=== PATIENT | female | born 1995 | race African-American/Black ===

== ENCOUNTER 2017-03-07 06:22 | Emergency (ER) | payer SELFPAY ==
[2017-03-07 06:30] VITALS: BP 136/82
--- NOTE | 2017-03-07 06:50 | ER Document Report ---
ED General - General Chief Complaint: Swollen Glands Stated Complaint: NECK PAIN Time Seen by Provider: 03/07/17 06:25 Mode of Arrival: Ambulatory Information source: Patient Notes: 21-year-old female no previous medical history presents with complaints of tender lymph node in the posterior cervical region. Patient notes she's had a minor sore throat denies any fevers or chills nausea vomiting or diarrhea. Patient notes it is tender when she touched the back of her neck yesterday. Denies any other lymph node enlargement TRAVEL OUTSIDE OF THE [place] IN LAST 30 DAYS: No - HPI Onset: Yesterday Onset/Duration: Sudden Quality of pain: Achy Severity: Mild Pain Level: 1 Associated symptoms: Sore throat, Other Exacerbated by: Denies Relieved by: Denies Similar symptoms previously: No Recently seen / treated by doctor: No Past Medical History - Social History Smoking Status: Never Smoker Cigarette use (# per day): No Chew tobacco use (# tins/day): No Smoking Education Provided: No Family History: Reviewed & Not Pertinent Patient has suicidal ideation: No Patient has homicidal ideation: No Renal/ Medical History: Denies: Hx Peritoneal Dialysis Review of Systems - Review of Systems Notes: PHYSICAL EXAMINATION: GENERAL: Well-appearing, well-nourished and in no acute distress. HEAD: Atraumatic, normocephalic. EYES: Pupils equal round and reactive to light, extraocular movements intact, conjunctiva are normal. ENT: Nares patent, oropharynx clear without exudates. Moist mucous membranes. Single 1 mm lymph node posterior cervicular on the right tender to palpation NECK: Normal range of motion, supple without lymphadenopathy LUNGS: Breath sounds clear to auscultation bilaterally and equal. No wheezes rales or rhonchi. HEART: Regular rate and rhythm without murmurs ABDOMEN: Soft, nontender, nondistended abdomen. No guarding, no rebound. No masses appreciated. Female : deferred Musculoskeletal: Normal range of motion, no pitting or edema. No cyanosis. NEUROLOGICAL: Cranial nerves grossly intact. Normal speech, normal gait. Normal sensory, motor exams PSYCH: Normal mood, normal affect. SKIN: Facial hair noted Warm, Dry, normal turgor, no rashes or lesions noted. Physical Exam - Vital signs Vitals: Temp Pulse Resp BP Pulse Ox 97.7 F 64 15 136/82 H 100 03/07/17 06:25 03/07/17 06:25 03/07/17 06:25 03/07/17 06:25 03/07/17 06:25 Course - Re-evaluation Re-evalutation: 03/07/17 06:49 Patient is in no distress looks well Monospot and strep have been ordered otherwise a single lymph node at this time does not appear to be life threatening. 03/07/17 08:07 Monospot was positive this would explain the patient's posterior cervical adenopathy After performing a Medical Screening Examination, I estimate there is LOW risk for ACUTE APPENDICITIS, BOWEL OBSTRUCTION, ACUTE CHOLECYSTITIS, PERFORATED DIVERTICULITIS, INCARCERATED HERNIA, PANCREATITIS, PELVIC INFLAMMATORY DISEASE, PERFORATED ULCER, ECTOPIC , or TUBO-OVARIAN ABSCESS, thus I consider the discharge disposition reasonable. Also, there is no evidence or peritonitis , sepsis, or toxicity. I have reevaluated this patient multiple times and no significant life threatening changes are noted. The patient and I have discussed the diagnosis and risks, and we agree with discharging home with close follow-up with the understanding that symptoms and presentations can change. We also discussed returning to the Emergency Department immediately if new or worsening symptoms occur. We have discussed the symptoms which are most concerning (e.g., bloody stool, fever, changing or worsening pain, vomiting) that necessitate immediate return. - Vital Signs Vital signs: Temp Pulse Resp BP Pulse Ox 97.7 F 64 15 136/82 H 100 03/07/17 06:25 03/07/17 06:25 03/07/17 06:25 03/07/17 06:25 03/07/17 06:25 - Laboratory Laboratory results interpreted by me: 03/07/17 07:40 Monotest POSITIVE H Discharge - Discharge Clinical Impression: posterior cervical radicular adenopathy, Mononucleosis Condition: Stable Disposition: HOME, SELF-CARE Additional Instructions: Mononucleosis You have been diagnosed as having mononucleosis ("mono"). This is a viral infection which often lasts several weeks. Typically, a week or two of tiredness precedes a sore throat, swollen glands, fever, and aches. Sometimes there's a rash. In severe cases, swollen spleen and liver develop. There is no cure for mononucleosis. You should rest, drink plenty of fluids, and avoid contact sports until you are better. A follow-up examination is usually done in about a week. Further laboratory testing may be necessary then. See the doctor if there is significant worsening of the symptoms or onset of new symptoms such as severe headache, stiff neck, generalized abdominal pain , or faintness. Follow up with your physician tomorrow for further care or return to the ED IMMEDIATELY if symptoms worsen or new concerns occur. If you cannot afford to follow up with your primary care physician a list of low cost clinics have been provided at the end of your discharge papers as well.
== END 2017-03-07 08:16 | disposition home or self-care (01) ==
LOC: ER 06:22
DX: B27.90 Infectious mononucleosis, unspecified without complication (principal); R59.0 Localized enlarged lymph nodes; J02.9 Acute pharyngitis, unspecified
CPT/HCPCS: 36415; 86308; 87070; 87880; 99283